=== PATIENT | female | born 1965 | race Caucasian/White ===

== ENCOUNTER 2023-08-10 12:39 | Observation (INO) | payer OTHER, SELFPAY ==
[~2023-08-10] VITALS: Ht 165.1 cm; Wt 79.6 kg
[2023-08-10] MEDS: MULTIVITAMINS/MINERALS THERAP 1 TAB PO SCH (09:00)
[~2023-08-10 12:39] MED LIST: FUROSEMIDE 40MG/4ML VIAL IV SCH
[2023-08-10] MEDS ORDERED: UNRESOLVED CLARIFICATION ENTRY XX STA (13:09)
[2023-08-10] MEDS: METOPROLOL 5 MG/5 ML VIAL IV SCH ×2 (13:14→15:13)
[2023-08-10] MEDS: METOPROLOL TART 50 MG TAB PO ONE ×2 (13:14→15:12)
[2023-08-10 13:25] LABS: BASO # 0.1 10^3/uL (0.0-0.2); BASO % 1.3 % (0.0-1.0); EOS # 0.1 10^3/uL (0.0-0.5); HEMATOCRIT 46.9 % (36.0-47.0); HEMOGLOBIN 15.8 g/dl (12.0-15.5); LYMPH # 1.7 10^3/uL (1.5-5.0); LYMPH % 26.3 % (24.0-44.0); MEAN CORPUSCULAR HEMOGLOBIN 36.2 pg (27.0-33.0); MEAN CORPUSCULAR HGB CONC 33.7 g/dl (32.0-36.5); MEAN CORPUSCULAR VOLUME 107.3 fl (80.0-96.0); MONO # 0.6 10^3/uL (0.0-0.8); MONO % 8.7 % (2.0-8.0); NEUTROPHILS # 3.9 10^3/uL (1.5-8.5); NEUTROPHILS % 62.5 % (36.0-66.0); PLATELET COUNT, AUTOMATED 288 10^3/uL (150-450); RED BLOOD COUNT 4.37 10^6/uL (4.00-5.40); WHITE BLOOD COUNT 6.3 10^3/uL (4.0-10.0)
[2023-08-10 13:57] LABS: FREE THYROXINE INDEX 3.2 % (1.3-4.8); T UPTAKE 39.4 % (22.5-37.0); THYROID STIMULATING HORMONE 2.52 uIU/ML (0.55-4.78)
[2023-08-10] MEDS ORDERED: MULTTAB61 PO (14:01)
[2023-08-10] MEDS ORDERED: CHEL50TA3 PO (14:01)
[2023-08-10] MEDS ORDERED: NAPR220C23 PO (14:01)
[2023-08-10] MEDS ORDERED: OMEG10002 PO (14:01)
[2023-08-10] MEDS ORDERED: D200CAP3 PO (14:01)
[2023-08-10] MEDS ORDERED: OMEP-173 PO (14:01)
[2023-08-10] MEDS ORDERED: DHEA50TA PO (14:01)
[2023-08-10] MEDS ORDERED: EPIN11.7 IH (14:01)
[2023-08-10] MEDS ORDERED: MAGN400C2 PO (14:01)
[2023-08-10] MEDS ORDERED: EQL50TAB2 PO (14:01)
[2023-08-10] MEDS ORDERED: ASPI81TA26 PO (14:01)
[2023-08-10] MEDS ORDERED: CALC600T57 PO (14:01)
[2023-08-10] MEDS ORDERED: HOME MED LIST COMPLETE! XX SCH (14:05)
[2023-08-10 14:07] LABS: ALBUMIN 3.7 G/DL (3.2-5.2); BILIRUBIN,DIRECT 0.4 MG/DL (<0.4); BILIRUBIN,TOTAL 1.1 MG/DL (0.3-1.2); CALCIUM LEVEL 9.5 MG/DL (8.5-10.1); CREATININE FOR GFR 1.09 MG/DL (0.55-1.30); GLOMERULAR FILTRATION RATE 54.9 (>51); MAGNESIUM LEVEL 2.1 MG/DL (1.8-2.4); POTASSIUM SERUM 4.2 MMOL/L (3.5-5.1); TOTAL PROTEIN 7.1 G/DL (5.7-8.2)
[2023-08-10] MEDS: DIGOXIN INJ 0.5 MG/2 ML AMP IV STA ×3 (16:51→21:11)
[2023-08-10] MEDS ORDERED: ACETAMINOPHEN TAB 650MG DOSE (2X325MG) PO PRN (18:40)
[2023-08-10] MEDS: MULTIVITAMINS/MINERALS THERAP 1 TAB PO ONE (18:40)
[2023-08-10] MEDS: FUROSEMIDE 40MG/4ML VIAL IV ONE (19:37)
[2023-08-10 19:57] LABS: C REACTIVE PROTEIN QUANTITATIV 0.7 MG/DL (<1.0)
[2023-08-10 19:58] LABS: CHOLESTEROL RISK RATIO 5.68 (<5); HDL CHOLESTEROL 31.5 MG/DL (>40); LDL CHOLESTEROL 130.9 MG/DL (<100); NON-HDL-C 147.5 MG/DL
[2023-08-10 20:04] LABS: INR 1.15; PROTHROMBIN TIME 14.4 SECONDS (12.5-14.5)
[2023-08-10 20:29] VITALS: BP 163/93
[2023-08-10 20:30] VITALS: TEMP 98.6; O2SAT 96
[2023-08-10] MEDS: ATORVASTATIN 20 MG TAB PO SCH (21:09)
[2023-08-10] MEDS: APIXABAN 5 MG TAB (ELIQUIS) PO SCH (21:10)
[2023-08-10] MEDS: atenoloL 50 MG TAB PO STA (21:10)
[2023-08-10 22:07] VITALS: BP 145/94
[2023-08-10 22:17] LABS: AMPHETAMINES LEVEL URINE NEGATIVE (NEGATIVE); BARBITURATES URINE NEGATIVE (NEGATIVE); BENZODIAZEPINES URINE NEGATIVE (NEGATIVE); CANNABINOIDS URINE NEGATIVE (NEGATIVE); COCAINE METABOLITE URINE NEGATIVE (NEGATIVE); METHADONE URINE NEGATIVE (NEGATIVE); OPIATES URINE NEGATIVE (NEGATIVE); PHENCYCLIDINE URINE NEGATIVE (NEGATIVE)
[2023-08-10] MEDS: DIGOXIN INJ 0.5 MG/2 ML AMP IV ONE (23:12)
[2023-08-10 23:51] VITALS: BP 158/71; TEMP 96.6; O2SAT 95
[2023-08-11] VITALS (9 sets, daily range): BP systolic 135–186; BP diastolic 79–98; TEMP 96.7–97.5; O2SAT 94–97
[2023-08-11] MEDS ORDERED: LORazepam 2 MG TAB PO PRN (08:25)
[2023-08-11 08:31] LABS: BASO # 0.1 10^3/uL (0.0-0.2); BASO % 1.2 % (0.0-1.0); EOS # 0.1 10^3/uL (0.0-0.5); EOS % 1.4 % (0.0-3.0); LYMPH # 1.1 10^3/uL (1.5-5.0); LYMPH % 21.6 % (24.0-44.0); MEAN CORPUSCULAR HEMOGLOBIN 36.3 pg (27.0-33.0); MEAN CORPUSCULAR HGB CONC 34.1 g/dl (32.0-36.5); MEAN CORPUSCULAR VOLUME 106.5 fl (80.0-96.0); MONO # 0.5 10^3/uL (0.0-0.8); MONO % 8.9 % (2.0-8.0); NEUTROPHILS # 3.4 10^3/uL (1.5-8.5); NEUTROPHILS % 66.7 % (36.0-66.0); PLATELET COUNT, AUTOMATED 236 10^3/uL (150-450); RED BLOOD COUNT 4.13 10^6/uL (4.00-5.40); WHITE BLOOD COUNT 5.1 10^3/uL (4.0-10.0)
[2023-08-11] MEDS ORDERED: atenoloL 50 MG TAB PO SCH (09:00)
[2023-08-11] MEDS: MULTIVITAMINS/MINERALS THERAP 1 TAB PO SCH (09:00)
[2023-08-11 09:04] LABS: ALKALINE PHOSPHATASE 83 U/L (46-116); ALT/SGPT 55 U/L (7.0-40); AST/SGOT 45 U/L (<34); BILIRUBIN,TOTAL 0.9 MG/DL (0.3-1.2); BLOOD UREA NITROGEN 20 MG/DL (9-23); CALCIUM LEVEL 8.9 MG/DL (8.5-10.1); CARBON DIOXIDE LEVEL 28 MMOL/L (20-31); CHLORIDE LEVEL 102 MMOL/L (98-107); CREATININE FOR GFR 0.95 MG/DL (0.55-1.30); GLOMERULAR FILTRATION RATE > 60.0 (>51); GLUCOSE, FASTING 99 MG/DL (60-100); MAGNESIUM LEVEL 1.9 MG/DL (1.8-2.4); POTASSIUM SERUM 4.2 MMOL/L (3.5-5.1); SODIUM LEVEL 137 MMOL/L (136-145)
[2023-08-11] MEDS: FUROSEMIDE 40MG/4ML VIAL IV SCH (09:08)
[2023-08-11] MEDS: VITAMIN B COMPLEX/VIT C CAP PO SCH (09:08)
[2023-08-11] MEDS: VITAMIN D 1,000 INTERNATIONAL UNITS TABLET PO SCH (09:08)
[2023-08-11] MEDS: DIGOXIN 0.25 MG TAB PO SCH (09:09)
[2023-08-11] MEDS: atenoloL 50 MG TAB PO SCH (09:09)
[2023-08-11] MEDS: THIAMINE 100 MG TAB PO SCH (09:09)
[2023-08-11] MEDS: SPIRONOLACTONE 12.5MG PER 1/2 TABLET PO SCH (09:10)
[2023-08-11] MEDS: FOLIC ACID 1MG TAB PO SCH (09:10)
[2023-08-11] MEDS: OMEGA-3 1000MG CAPSULE PO SCH (09:11)
[2023-08-11] MEDS: OMEPRAZOLE 20MG CAP PO SCH (09:11)
[2023-08-11] MEDS: ZINC SULFATE 220 MG CAP PO SCH (09:11)
[2023-08-11] MEDS: ASPIRIN 81MG ENTERIC TABLET PO SCH (09:11)
[2023-08-11] MEDS: CHLORTHALIDONE 12.5MG PER 1/2 TABLET PO SCH (09:18)
[2023-08-11] MEDS ORDERED: THIA100TA PO (11:05)
[2023-08-11] MEDS ORDERED: ATEN50TA2 PO (11:05)
[2023-08-11] MEDS ORDERED: FOLI1TAB11 PO (11:05)
[2023-08-11] MEDS ORDERED: ALDA25TA2 PO (11:05)
[2023-08-11] MEDS ORDERED: DIGO0.253 PO (11:05)
[2023-08-11] MEDS ORDERED: ATOR1TAB21 PO (11:05)
[2023-08-11] MEDS ORDERED: ELIQ5TAB PO (11:05)
[2023-08-11] MEDS ORDERED: LISI20TA33 PO (11:05)
[2023-08-11] MEDS ORDERED: CHLO125TA PO (11:05)
[2023-08-11] MEDS: METOPROLOL 5 MG/5 ML VIAL IV PRN (13:00)
[2023-08-11] MEDS: **hydrALAZINE** 10 MG TAB PO SCH (15:00)
[2023-08-12] VITALS (11 sets, daily range): BP systolic 119–175; BP diastolic 76–88; TEMP 97.1–97.8; O2SAT 92–96
[2023-08-12 06:10] LABS: BASO # 0.1 10^3/uL (0.0-0.2); BASO % 1.1 % (0.0-1.0); EOS # 0.1 10^3/uL (0.0-0.5); EOS % 1.6 % (0.0-3.0); HEMATOCRIT 47.2 % (36.0-47.0); HEMOGLOBIN 16.1 g/dl (12.0-15.5); LYMPH # 1.4 10^3/uL (1.5-5.0); LYMPH % 25.6 % (24.0-44.0); MEAN CORPUSCULAR HEMOGLOBIN 35.7 pg (27.0-33.0); MEAN CORPUSCULAR HGB CONC 34.1 g/dl (32.0-36.5); MEAN CORPUSCULAR VOLUME 104.7 fl (80.0-96.0); MONO # 0.6 10^3/uL (0.0-0.8); MONO % 10.2 % (2.0-8.0); NEUTROPHILS # 3.4 10^3/uL (1.5-8.5); NEUTROPHILS % 61.3 % (36.0-66.0); PLATELET COUNT, AUTOMATED 262 10^3/uL (150-450); RED BLOOD COUNT 4.51 10^6/uL (4.00-5.40); WHITE BLOOD COUNT 5.5 10^3/uL (4.0-10.0)
[2023-08-12 06:45] LABS: ALBUMIN 2.7 G/DL (3.2-5.2); ALKALINE PHOSPHATASE 80 U/L (46-116); ALT/SGPT 44 U/L (7.0-40); AST/SGOT 30 U/L (<34); BILIRUBIN,TOTAL 0.8 MG/DL (0.3-1.2); BLOOD UREA NITROGEN 16 MG/DL (9-23); CALCIUM LEVEL 8.8 MG/DL (8.5-10.1); CARBON DIOXIDE LEVEL 28 MMOL/L (20-31); CHLORIDE LEVEL 103 MMOL/L (98-107); CREATININE FOR GFR 0.79 MG/DL (0.55-1.30); GLOMERULAR FILTRATION RATE > 60.0 (>51); GLUCOSE, FASTING 84 MG/DL (60-100); MAGNESIUM LEVEL 1.8 MG/DL (1.8-2.4); POTASSIUM SERUM 4.2 MMOL/L (3.5-5.1); SODIUM LEVEL 140 MMOL/L (136-145); TOTAL PROTEIN 5.6 G/DL (5.7-8.2)
[2023-08-12] MEDS ORDERED: HYDR-161 PO (11:24)
[2023-08-12] MEDS: **hydrALAZINE** 50 MG TAB PO SCH (12:45)
[2023-08-12 14:57] LABS: DIGOXIN LEVEL 1.8 NG/ML (0.8-2.0)
[2023-08-12] MEDS: FLECAINIDE 50MG TABLET PO SCH (15:01)
[2023-08-12] MEDS: amLODIPine 5 MG TAB PO SCH (15:02)
[2023-08-13 03:53] VITALS: BP 140/80; TEMP 97.4; O2SAT 97
[2023-08-13 04:52] LABS: BASO # 0.1 10^3/uL (0.0-0.2); BASO % 0.9 % (0.0-1.0); EOS # 0.1 10^3/uL (0.0-0.5); EOS % 1.6 % (0.0-3.0); HEMATOCRIT 45.1 % (36.0-47.0); HEMOGLOBIN 15.7 g/dl (12.0-15.5); LYMPH # 1.6 10^3/uL (1.5-5.0); LYMPH % 25.4 % (24.0-44.0); MEAN CORPUSCULAR HEMOGLOBIN 36.7 pg (27.0-33.0); MEAN CORPUSCULAR HGB CONC 34.8 g/dl (32.0-36.5); MEAN CORPUSCULAR VOLUME 105.4 fl (80.0-96.0); MONO # 0.7 10^3/uL (0.0-0.8); MONO % 10.2 % (2.0-8.0); NEUTROPHILS % 61.7 % (36.0-66.0); PLATELET COUNT, AUTOMATED 277 10^3/uL (150-450); RED BLOOD COUNT 4.28 10^6/uL (4.00-5.40); WHITE BLOOD COUNT 6.4 10^3/uL (4.0-10.0)
[2023-08-13 05:17] LABS: ALBUMIN 2.8 G/DL (3.2-5.2); ALKALINE PHOSPHATASE 75 U/L (46-116); ALT/SGPT 38 U/L (7.0-40); AST/SGOT 23 U/L (<34); BILIRUBIN,TOTAL 0.6 MG/DL (0.3-1.2); BLOOD UREA NITROGEN 15 MG/DL (9-23); CALCIUM LEVEL 8.5 MG/DL (8.5-10.1); CARBON DIOXIDE LEVEL 30 MMOL/L (20-31); CHLORIDE LEVEL 101 MMOL/L (98-107); CREATININE FOR GFR 0.84 MG/DL (0.55-1.30); GLOMERULAR FILTRATION RATE > 60.0 (>51); GLUCOSE, FASTING 100 MG/DL (60-100); MAGNESIUM LEVEL 1.7 MG/DL (1.8-2.4); POTASSIUM SERUM 3.9 MMOL/L (3.5-5.1); SODIUM LEVEL 138 MMOL/L (136-145); TOTAL PROTEIN 5.7 G/DL (5.7-8.2)
[2023-08-13 08:05] VITALS: BP 144/84; TEMP 97.5; O2SAT 95
[2023-08-13 08:40] VITALS: BP 144/84
[2023-08-13] MEDS: FLECAINIDE 50MG TABLET PO SCH (08:41)
[2023-08-13] MEDS: MAG SULF 1GM/100ML (MAG RUN) 1 GM in IV 1 EA IV SCH (10:39)
[2023-08-13] MEDS ORDERED: AMLO1TAB24 PO (11:27)
[2023-08-13] MEDS ORDERED: FLEC25TA PO (11:27)
== END 2023-08-13 13:47 | disposition home or self-care (01) ==
LOC: M ED 12:39 → M ED INP 12:40 → M PCU 20:14
PROVIDERS: ADMIT Hospitalist; ATTEND Hospitalist
DX: I48.0 Paroxysmal atrial fibrillation (principal); E05.90 Thyrotoxicosis, unspecified without thyrotoxic crisis or storm; Z79.82 Long term (current) use of aspirin; Z79.899 Other long term (current) drug therapy; I10 Essential (primary) hypertension
CPT/HCPCS: 36415; 71045; 80048; 80053; 80061; 80076; 80162; 80307; 82077; 83036; 83605; 83735; 84145; 84436; 84443; 84479; 85025; 85610; 85730; 86140; 93005; 93041; 94760; 96374; 96375; 96376; 99285; J1160; J1940; J3475

== ENCOUNTER → 2023-08-21 | Outpatient (REF) | payer SELFPAY ==
[~2023-08-21] MED LIST changes: +ALDA25TA2 PO; +AMLO1TAB24 PO; +ASPI81TA26 PO; +ATEN50TA2 PO; +ATOR1TAB21 PO; +CALC600T57 PO; +CHEL50TA3 PO; +CHLO125TA PO; +D200CAP3 PO; +DHEA50TA PO; +DIGO0.253 PO; +ELIQ5TAB PO; +EPIN11.7 IH; +EQL50TAB2 PO; +FLEC25TA PO; +FOLI1TAB11 PO; -FUROSEMIDE 40MG/4ML VIAL IV SCH; +HYDR-161 PO; +LISI20TA33 PO; +MAGN400C2 PO; +MULTTAB61 PO; +NAPR220C23 PO; +OMEG10002 PO; +OMEP-173 PO; +THIA100TA PO
[2023-08-21 19:13] LABS: BASO # 0.1 10^3/uL (0.0-0.2); BASO % 1.6 % (0.0-1.0); EOS # 0.1 10^3/uL (0.0-0.5); EOS % 1.6 % (0.0-3.0); HEMOGLOBIN 16.6 g/dl (12.0-15.5); LYMPH # 1.4 10^3/uL (1.5-5.0); LYMPH % 24.7 % (24.0-44.0); MEAN CORPUSCULAR HEMOGLOBIN 35.5 pg (27.0-33.0); MEAN CORPUSCULAR HGB CONC 33.9 g/dl (32.0-36.5); MEAN CORPUSCULAR VOLUME 104.9 fl (80.0-96.0); MONO # 0.5 10^3/uL (0.0-0.8); MONO % 9.3 % (2.0-8.0); NEUTROPHILS # 3.5 10^3/uL (1.5-8.5); NEUTROPHILS % 62.6 % (36.0-66.0); PLATELET COUNT, AUTOMATED 366 10^3/uL (150-450); RED BLOOD COUNT 4.67 10^6/uL (4.00-5.40); WHITE BLOOD COUNT 5.6 10^3/uL (4.0-10.0)
[2023-08-21 19:19] LABS: C REACTIVE PROTEIN QUANTITATIV < 0.40 MG/DL (<1.0)
[2023-08-21 19:21] LABS: ALBUMIN 4.4 G/DL (3.2-5.2); ALKALINE PHOSPHATASE 100 U/L (46-116); ALT/SGPT 87 U/L (7.0-40); AST/SGOT 37 U/L (<34); BILIRUBIN,TOTAL 0.6 MG/DL (0.3-1.2); BLOOD UREA NITROGEN 20 MG/DL (9-23); CALCIUM LEVEL 9.5 MG/DL (8.5-10.1); CARBON DIOXIDE LEVEL 30 MMOL/L (20-31); CHLORIDE LEVEL 94 MMOL/L (98-107); CHOLESTEROL LEVEL 146 MG/DL (<200); CHOLESTEROL RISK RATIO 3.63 (<5); CREATININE FOR GFR 0.96 MG/DL (0.55-1.30); GLOMERULAR FILTRATION RATE > 60.0 (>51); GLUCOSE, FASTING 96 MG/DL (60-100); HDL CHOLESTEROL 40.2 MG/DL (>40); LDL CHOLESTEROL 71.4 MG/DL (<100); NON-HDL-C 105.8 MG/DL; POTASSIUM SERUM 5.5 MMOL/L (3.5-5.1); SODIUM LEVEL 130 MMOL/L (136-145); TOTAL PROTEIN 7.9 G/DL (5.7-8.2); TRIGLYCERIDES LEVEL 172 MG/DL (<150)
[2023-08-21 19:24] LABS: THYROID STIMULATING HORMONE 2.091 uIU/ML (0.55-4.78)
== END ==
LOC: M LAB REF 17:42
PROVIDERS: ATTEND Nurse Practitioner Family
DX: E06.9 Thyroiditis, unspecified (principal); E66.3 Overweight; R53.83 Other fatigue; M25.551 Pain in right hip; Z11.9 Encounter for screening for infectious and parasitic diseases, unspecified; M25.552 Pain in left hip

== ENCOUNTER → 2023-09-22 | Outpatient (CLI) | payer OTHER | LOC: M WHC 15:37 | PROVIDERS: ATTEND Nurse Practitioner Family | DX: Z12.31 Encounter for screening mammogram for malignant neoplasm of breast (principal) ==

== ENCOUNTER 2023-09-29 08:33 | Emergency (ER) | payer OTHER ==
[~2023-09-29] VITALS: Ht 165.1 cm; Wt 76.7 kg
[2023-09-29] MEDS: METOPROLOL 5 MG/5 ML VIAL IV SCH (09:28)
[2023-09-29 09:36] LABS: HEMATOCRIT 35.1 % (36.0-47.0); HEMOGLOBIN 11.9 g/dl (12.0-15.5); MEAN CORPUSCULAR HEMOGLOBIN 35.8 pg (27.0-33.0); MEAN CORPUSCULAR HGB CONC 33.9 g/dl (32.0-36.5); MEAN CORPUSCULAR VOLUME 105.7 fl (80.0-96.0); PLATELET COUNT, AUTOMATED 211 10^3/uL (150-450); RED BLOOD COUNT 3.32 10^6/uL (4.00-5.40); WHITE BLOOD COUNT 6.9 10^3/uL (4.0-10.0)
[2023-09-29 09:41] VITALS: BP 126/87
[2023-09-29 10:07] LABS: BLOOD UREA NITROGEN 12 MG/DL (9-23); CALCIUM LEVEL 8.9 MG/DL (8.5-10.1); CARBON DIOXIDE LEVEL 25 MMOL/L (20-31); CHLORIDE LEVEL 107 MMOL/L (98-107); CREATININE FOR GFR 0.92 MG/DL (0.55-1.30); GLOMERULAR FILTRATION RATE > 60.0 (>51); GLUCOSE, FASTING 116 MG/DL (60-100); POTASSIUM SERUM 4.1 MMOL/L (3.5-5.1); SODIUM LEVEL 139 MMOL/L (136-145)
[2023-09-29] MEDS: DIGOXIN INJ 0.5 MG/2 ML AMP IV STA ×2 (10:58→12:04)
[2023-09-29] MEDS: FLECAINIDE 50MG TABLET PO STA ×3 (13:48→17:02)
[2023-09-29] MEDS: WARFARIN SOD 5MG TAB PO ONE (13:48)
[2023-09-29 14:20] LABS: INR 1.08; PROTHROMBIN TIME 13.7 SECONDS (12.5-14.5)
[2023-09-29 17:30] VITALS: O2SAT 98
[2023-09-29 18:04] VITALS: BP 133/87; TEMP 98.2
[2023-09-29] MEDS ORDERED: DIGO0.253 PO (18:06)
[2023-09-29] MEDS ORDERED: FLEC25TA PO (18:06)
[2023-09-29] MEDS ORDERED: WARF-23 PO (18:08)
[2023-09-29] MEDS ORDERED: WARF-21 PO (18:10)
[2023-09-29] MEDS ORDERED: [UNRECOGNIZED DRUG - OTHER] (18:43)
== END 2023-09-29 18:53 | disposition home or self-care (01) ==
LOC: M ED 08:33
DX: Z76.0 Encounter for issue of repeat prescription (principal); I48.91 Unspecified atrial fibrillation; I10 Essential (primary) hypertension; E07.9 Disorder of thyroid, unspecified; Z79.82 Long term (current) use of aspirin; Z79.899 Other long term (current) drug therapy
CPT/HCPCS: 80048; 80162; 85027; 85610; 93005; 96374; 96376; 99285; J1160

== ENCOUNTER → 2023-10-02 | Outpatient (CLI) | payer OTHER ==
[~2023-10-02] MED LIST changes: +WARF-21 PO; +WARF-23 PO; +[UNRECOGNIZED DRUG - OTHER]
[2023-10-02 10:54] LABS: INR 2.75; PROTHROMBIN TIME 28.1 SECONDS (12.5-14.5)
== END ==
LOC: M LAB 09:25
PROVIDERS: ATTEND Emergency Medicine
DX: Z79.01 Long term (current) use of anticoagulants (principal)

== ENCOUNTER → 2023-10-09 | Outpatient (REF) | payer OTHER ==
[2023-10-09 13:06] LABS: INR 3.52
== END ==
LOC: M LAB REF 12:26
PROVIDERS: ATTEND Nurse Practitioner Family
DX: Z79.01 Long term (current) use of anticoagulants (principal)

== ENCOUNTER → 2023-10-21 | Outpatient (REF) | payer OTHER ==
[2023-10-21 12:52] LABS: INR 3.97; PROTHROMBIN TIME 37.3 SECONDS (12.5-14.5)
== END ==
LOC: M LAB REF 12:24
PROVIDERS: ATTEND Nurse Practitioner Family
DX: R79.1 Abnormal coagulation profile (principal)

== ENCOUNTER → 2023-10-30 | Outpatient (REF) | payer OTHER ==
[2023-10-30 16:28] LABS: INR 1.4; PROTHROMBIN TIME 16.8 SECONDS (12.5-14.5)
== END ==
LOC: M LAB REF 16:04
PROVIDERS: ATTEND Nurse Practitioner Family
DX: Z79.01 Long term (current) use of anticoagulants (principal)

== ENCOUNTER → 2023-11-06 | Outpatient (REF) | payer OTHER ==
[2023-11-06 11:46] LABS: INR 1.52; PROTHROMBIN TIME 17.8 SECONDS (12.5-14.5)
== END ==
LOC: M LAB REF 11:16
PROVIDERS: ATTEND Nurse Practitioner Family
DX: I48.91 Unspecified atrial fibrillation (principal)

== ENCOUNTER → 2023-11-13 | Outpatient (CLI) | payer OTHER ==
[2023-11-13 16:07] LABS: INR 1.95; PROTHROMBIN TIME 21.5 SECONDS (12.5-14.5)
[2023-11-13 16:29] LABS: BLOOD UREA NITROGEN 14 MG/DL (9-23); CARBON DIOXIDE LEVEL 33 MMOL/L (20-31); CHLORIDE LEVEL 96 MMOL/L (98-107); CREATININE FOR GFR 0.83 MG/DL (0.55-1.30); GLOMERULAR FILTRATION RATE > 60.0 (>51); GLUCOSE, FASTING 108 MG/DL (60-100); POTASSIUM SERUM 4.3 MMOL/L (3.5-5.1); SODIUM LEVEL 133 MMOL/L (136-145)
== END ==
LOC: M LAB 15:27
PROVIDERS: ATTEND Nurse Practitioner Family
DX: I10 Essential (primary) hypertension (principal); Z79.01 Long term (current) use of anticoagulants

== ENCOUNTER → 2023-12-04 | Outpatient (CLI) | payer OTHER ==
[2023-12-04 16:03] LABS: BASO % 0.9 % (0.0-1.0); EOS # 0.1 10^3/uL (0.0-0.5); EOS % 1.5 % (0.0-3.0); HEMATOCRIT 35.1 % (36.0-47.0); HEMOGLOBIN 11.9 g/dl (12.0-15.5); LYMPH # 1.4 10^3/uL (1.5-5.0); LYMPH % 40.2 % (24.0-44.0); MEAN CORPUSCULAR HEMOGLOBIN 35.8 pg (27.0-33.0); MEAN CORPUSCULAR HGB CONC 33.9 g/dl (32.0-36.5); MEAN CORPUSCULAR VOLUME 105.7 fl (80.0-96.0); MONO # 0.4 10^3/uL (0.0-0.8); MONO % 12.3 % (2.0-8.0); NEUTROPHILS # 1.5 10^3/uL (1.5-8.5); NEUTROPHILS % 45.1 % (36.0-66.0); PLATELET COUNT, AUTOMATED 225 10^3/uL (150-450); RED BLOOD COUNT 3.32 10^6/uL (4.00-5.40); WHITE BLOOD COUNT 3.4 10^3/uL (4.0-10.0)
[2023-12-04 16:24] LABS: HEMOGLOBIN A1c 4.9 % (4.0-6.0)
[2023-12-04 16:30] LABS: ALBUMIN 3.8 G/DL (3.2-5.2); ALKALINE PHOSPHATASE 76 U/L (46-116); ALT/SGPT 30 U/L (7.0-40); AST/SGOT 15 U/L (<34); BILIRUBIN,TOTAL 0.8 MG/DL (0.3-1.2); BLOOD UREA NITROGEN 20 MG/DL (9-23); CARBON DIOXIDE LEVEL 30 MMOL/L (20-31); CHLORIDE LEVEL 99 MMOL/L (98-107); CHOLESTEROL LEVEL 145 MG/DL (<200); CHOLESTEROL RISK RATIO 3.86 (<5); CREATININE FOR GFR 0.91 MG/DL (0.55-1.30); GLOMERULAR FILTRATION RATE > 60.0 (>51); GLUCOSE, FASTING 100 MG/DL (60-100); HDL CHOLESTEROL 37.5 MG/DL (>40); LDL CHOLESTEROL 75.9 MG/DL (<100); NON-HDL-C 107.5 MG/DL; POTASSIUM SERUM 3.9 MMOL/L (3.5-5.1); SODIUM LEVEL 132 MMOL/L (136-145); TOTAL PROTEIN 6.8 G/DL (5.7-8.2); TRIGLYCERIDES LEVEL 158 MG/DL (<150)
[2023-12-04 16:32] LABS: THYROID STIMULATING HORMONE 1.173 uIU/ML (0.55-4.78)
== END ==
LOC: M LAB 15:12
PROVIDERS: ATTEND Internal Medicine Cardiovascular Disease
DX: I48.11 Longstanding persistent atrial fibrillation (principal); I11.0 Hypertensive heart disease with heart failure; I42.6 Alcoholic cardiomyopathy; Z13.1 Encounter for screening for diabetes mellitus; E78.2 Mixed hyperlipidemia; I50.9 Heart failure, unspecified

== ENCOUNTER → 2024-04-17 | Outpatient (CLI) | payer OTHER ==
[2024-04-17 12:25] LABS: INR 2.81; PROTHROMBIN TIME 29.6 SECONDS (12.5-14.5)
[2024-04-17 12:26] LABS: BLOOD UREA NITROGEN 22 MG/DL (9-23); CALCIUM LEVEL 8.6 MG/DL (8.5-10.1); CARBON DIOXIDE LEVEL 29 MMOL/L (20-31); CHLORIDE LEVEL 101 MMOL/L (98-107); CREATININE FOR GFR 0.82 MG/DL (0.55-1.30); GLOMERULAR FILTRATION RATE > 60.0 (>51); GLUCOSE, FASTING 95 MG/DL (60-100); POTASSIUM SERUM 5.1 MMOL/L (3.5-5.1); SODIUM LEVEL 140 MMOL/L (136-145)
== END ==
LOC: M LAB 10:19
PROVIDERS: ATTEND Nurse Practitioner Family
DX: I48.91 Unspecified atrial fibrillation (principal)

== ENCOUNTER → 2024-04-23 | Outpatient (CLI) | payer OTHER ==
[2024-04-23 15:14] LABS: PROTHROMBIN TIME 55.3 SECONDS (12.5-14.5)
[2024-04-23 15:28] LABS: INR 6.43
== END ==
LOC: M LAB 14:19
PROVIDERS: ATTEND Nurse Practitioner Family
DX: I48.91 Unspecified atrial fibrillation (principal); Z79.01 Long term (current) use of anticoagulants

== ENCOUNTER → 2024-04-26 | Outpatient (CLI) | payer OTHER ==
[2024-04-26 15:54] LABS: INR 3.95; PROTHROMBIN TIME 38.2 SECONDS (12.5-14.5)
== END ==
LOC: M LAB 15:17
PROVIDERS: ATTEND Nurse Practitioner Family
DX: R79.1 Abnormal coagulation profile (principal)

== ENCOUNTER → 2024-05-04 | Outpatient (CLI) | payer OTHER ==
[2024-05-04 10:37] LABS: INR 1.61; PROTHROMBIN TIME 19.4 SECONDS (12.5-14.5)
== END ==
LOC: M LAB 08:55
PROVIDERS: ATTEND Nurse Practitioner Family
DX: R79.1 Abnormal coagulation profile (principal)

== ENCOUNTER → 2024-05-14 | Outpatient (REF) | payer OTHER ==
[~2024-05-14] MED LIST changes: +ACET-910 PO; +BUME0.5T2; +CARV25TA; +FLON1SPR NARES; +LOSA100T46; +PRED20TA PO; +ROSU20TA86; +SOTA80TA32
[2024-05-14 17:33] LABS: INR 3.56; PROTHROMBIN TIME 35.3 SECONDS (12.5-14.5)
== END ==
LOC: M LAB REF 17:01
PROVIDERS: ATTEND Nurse Practitioner Family
DX: R79.1 Abnormal coagulation profile (principal)

== ENCOUNTER 2024-05-17 09:23 | Emergency (ER) | payer OTHER ==
[~2024-05-17] VITALS: Ht 162.6 cm; Wt 74.8 kg
[~2024-05-17 09:23] MED LIST changes: -ACET-910 PO; -BUME0.5T2; -CARV25TA; -FLON1SPR NARES; -LOSA100T46; -PRED20TA PO; -ROSU20TA86; -SOTA80TA32
[2024-05-17] MEDS ORDERED: LOSA100T46 (11:54)
[2024-05-17] MEDS ORDERED: SOTA80TA32 (11:54)
[2024-05-17] MEDS ORDERED: ROSU20TA86 (11:54)
[2024-05-17] MEDS ORDERED: BUME0.5T2 (11:54)
[2024-05-17] MEDS ORDERED: CARV25TA (11:54)
[2024-05-17] MEDS ORDERED: FLON1SPR NARES (11:54)
[2024-05-17] MEDS ORDERED: ACET-910 PO (11:54)
[2024-05-17 11:55] LABS: BASO % 0.6 % (0.0-1.0); EOS # 0.1 10^3/uL (0.0-0.5); EOS % 1.3 % (0.0-3.0); HEMATOCRIT 32.6 % (36.0-47.0); HEMOGLOBIN 10.7 g/dl (12.0-15.5); LYMPH # 1.3 10^3/uL (1.5-5.0); LYMPH % 20.7 % (24.0-44.0); MEAN CORPUSCULAR HEMOGLOBIN 34.5 pg (27.0-33.0); MEAN CORPUSCULAR HGB CONC 32.8 g/dl (32.0-36.5); MEAN CORPUSCULAR VOLUME 105.2 fl (80.0-96.0); MONO # 0.5 10^3/uL (0.0-0.8); MONO % 8.4 % (2.0-8.0); NEUTROPHILS # 4.2 10^3/uL (1.5-8.5); NEUTROPHILS % 68.7 % (36.0-66.0); PLATELET COUNT, AUTOMATED 229 10^3/uL (150-450); WHITE BLOOD COUNT 6.2 10^3/uL (4.0-10.0)
[2024-05-17 12:05] LABS: INR 4.69; PROTHROMBIN TIME 43.5 SECONDS (12.5-14.5)
[2024-05-17] MEDS: ACETAMINOPHEN 325 MG TAB PO ONE (12:16)
[2024-05-17 12:47] VITALS: BP 160/76; TEMP 97.6; O2SAT 98
[2024-05-17] MEDS ORDERED: PRED20TA PO (12:47)
== END 2024-05-17 13:02 | disposition home or self-care (01) ==
LOC: M ED 09:23
DX: M25.462 Effusion, left knee (principal); R79.1 Abnormal coagulation profile; M17.12 Unilateral primary osteoarthritis, left knee; Z79.1 Long term (current) use of non-steroidal anti-inflammatories (NSAID); Z79.52 Long term (current) use of systemic steroids; Z79.899 Other long term (current) drug therapy

== ENCOUNTER → 2024-05-20 | Outpatient (REF) | payer OTHER ==
[~2024-05-20] MED LIST changes: +ACET-910 PO; +BUME0.5T2; +CARV25TA; +FLON1SPR NARES; +LOSA100T46; +PRED20TA PO; +ROSU20TA86; +SOTA80TA32
[2024-05-20 12:48] LABS: INR 2.36; PROTHROMBIN TIME 25.9 SECONDS (12.5-14.5)
== END ==
LOC: M LAB REF 12:21
PROVIDERS: ATTEND Nurse Practitioner Family
DX: R79.1 Abnormal coagulation profile (principal)

== ENCOUNTER → 2024-06-08 | Outpatient (CLI) | payer OTHER ==
[2024-06-08 11:02] LABS: INR 1.83; PROTHROMBIN TIME 21.3 SECONDS (12.5-14.5)
== END ==
LOC: M LAB 10:29
PROVIDERS: ATTEND Nurse Practitioner Family
DX: R79.1 Abnormal coagulation profile (principal)

== ENCOUNTER 2024-06-16 08:49 | Emergency (ER) | payer OTHER ==
[~2024-06-16] VITALS: Ht 162.6 cm; Wt 74.8 kg
[2024-06-16] MEDS ORDERED: WARF-58 (09:14)
[2024-06-16] MEDS ORDERED: HYDR-3713 PO (11:54)
[2024-06-16 12:03] VITALS: BP 152/84; TEMP 98; O2SAT 99
== END 2024-06-16 12:00 | disposition home or self-care (01) ==
LOC: M ED 08:49
DX: M23.92 Unspecified internal derangement of left knee (principal); M25.462 Effusion, left knee; X50.0XXA Overexertion from strenuous movement or load, initial encounter; Z79.52 Long term (current) use of systemic steroids; Z79.1 Long term (current) use of non-steroidal anti-inflammatories (NSAID); Z79.899 Other long term (current) drug therapy; Z79.01 Long term (current) use of anticoagulants; Y99.9 Unspecified external cause status

== ENCOUNTER → 2024-06-23 | Outpatient (REF) | payer OTHER ==
[~2024-06-23] MED LIST changes: +HYDR-3713 PO; +WARF-58
[2024-06-23 16:56] LABS: INR 2.07; PROTHROMBIN TIME 23.4 SECONDS (12.5-14.5)
== END ==
LOC: M LAB REF 16:32
PROVIDERS: ATTEND Nurse Practitioner Family
DX: R79.1 Abnormal coagulation profile (principal)

== ENCOUNTER → 2024-06-24 | Outpatient (CLI) | payer OTHER | LOC: M PLARAD 14:46 | PROVIDERS: ATTEND Orthopaedic Surgery | DX: M25.562 Pain in left knee (principal) ==

== ENCOUNTER → 2024-07-12 | Outpatient (CLI) | payer OTHER ==
[2024-07-12 11:08] LABS: INR 2.8; PROTHROMBIN TIME 29.5 SECONDS (12.5-14.5)
== END ==
LOC: M LAB 10:06
PROVIDERS: ATTEND Nurse Practitioner Family
DX: I48.91 Unspecified atrial fibrillation (principal)

== ENCOUNTER 2024-07-25 20:20 | Emergency (ER) | payer OTHER ==
[2024-07-25] MEDS ORDERED: IPRATROPIUM 0.5MG/ALBUTEROL 2.5MG INH SOL UD 3ML As Ordered ONE (20:32)
[2024-07-25] MEDS: IPRATROPIUM 0.5MG/ALBUTEROL 2.5MG INH SOL UD 3ML NEB ONE ×2 (20:39)
[2024-07-25 20:44] LABS: VENOUS BASE EXCESS -1.9 (-2.0-2.0); VENOUS HCO3 24.2 MMOL/L (23.0-27.0); VENOUS O2 SATURATION 94.1 % (60.0-80.0); VENOUS PARTIAL PRESSURE CO2 46.7 mmHg (38.0-50.0); VENOUS PARTIAL PRESSURE O2 75.3 mmHg (30.0-50.0); VENOUS PH 7.333 UNITS (7.330-7.430); VENOUS STANDARD HCO3 22.8 MMOL/L; VENOUS TOTAL CO2 25.7 MMOL/L (24.0-28.0)
[2024-07-25 20:50] LABS: BASO # 0.1 10^3/uL (0.0-0.2); EOS # 0.2 10^3/uL (0.0-0.5); EOS % 2.4 % (0.0-3.0); HEMATOCRIT 39.4 % (36.0-47.0); HEMOGLOBIN 13.1 g/dl (12.0-15.5); LYMPH # 1.8 10^3/uL (1.5-5.0); MEAN CORPUSCULAR HGB CONC 33.2 g/dl (32.0-36.5); MEAN CORPUSCULAR VOLUME 108.2 fl (80.0-96.0); MONO # 0.6 10^3/uL (0.0-0.8); NEUTROPHILS # 5.2 10^3/uL (1.5-8.5); NEUTROPHILS % 66.3 % (36.0-66.0); PLATELET COUNT, AUTOMATED 245 10^3/uL (150-450); RED BLOOD COUNT 3.64 10^6/uL (4.00-5.40); WHITE BLOOD COUNT 7.9 10^3/uL (4.0-10.0)
[2024-07-25] MEDS: methylPREDNISolone 125MG 2ML VIAL IV ONE (20:55)
[2024-07-25 21:18] LABS: CK-MB VALUE MASS < 1.0 NG/ML (<3.6)
[2024-07-25 21:19] LABS: THYROID STIMULATING HORMONE 2.989 uIU/ML (0.55-4.78); THYROXINE (T4) 5.9 UG/DL (4.5-10.9)
[2024-07-25 21:26] LABS: ALBUMIN 4.1 G/DL (3.2-5.2); ALKALINE PHOSPHATASE 99 U/L (35-104); ALT/SGPT 37 U/L (7.0-40); AST/SGOT 30 U/L (<34); BILIRUBIN,DIRECT 0.1 MG/DL (<0.4); BILIRUBIN,TOTAL 0.4 MG/DL (0.3-1.2); BLOOD UREA NITROGEN 18 MG/DL (9-23); CALCIUM LEVEL 8.6 MG/DL (8.5-10.1); CARBON DIOXIDE LEVEL 24 MMOL/L (20-31); CHLORIDE LEVEL 104 MMOL/L (98-107); CPK CREATINE PHOSPHOKINASE 62 U/L (34-145); CREATININE FOR GFR 0.69 MG/DL (0.55-1.30); GLOMERULAR FILTRATION RATE > 90.0 (>51); GLUCOSE, FASTING 129 MG/DL (60-100); MB/CK RELATIVE INDEX 1.61 (< OR =4); POTASSIUM SERUM 3.9 MMOL/L (3.5-5.1); SODIUM LEVEL 140 MMOL/L (136-145); TOTAL PROTEIN 7.5 G/DL (5.7-8.2)
[2024-07-25 22:10] VITALS: O2SAT 96
[2024-07-25] MEDS ORDERED: PRED20TA PO (22:19)
[2024-07-25] MEDS ORDERED: VENTAER INH (22:19)
[2024-07-25 22:20] VITALS: BP 169/77; TEMP 98.4; O2SAT 97
== END 2024-07-25 22:30 | disposition home or self-care (01) ==
LOC: M ED 20:20
DX: J45.901 Unspecified asthma with (acute) exacerbation (principal); I10 Essential (primary) hypertension; F10.10 Alcohol abuse, uncomplicated; Z86.79 Personal history of other diseases of the circulatory system; Z79.52 Long term (current) use of systemic steroids; Z79.899 Other long term (current) drug therapy; Z79.01 Long term (current) use of anticoagulants
CPT/HCPCS: 71045; 80048; 80076; 82550; 82553; 82803; 83605; 83880; 84436; 84443; 84484; 85025; 87486; 87581; 87633; 87798; 93005; 93041; 94640; 94760; 96374; 99285; J2919

== ENCOUNTER → 2024-07-26 | Outpatient (REF) | payer OTHER ==
[~2024-07-26] MED LIST changes: +VENTAER INH
[2024-07-26 12:33] LABS: INR 4.32; PROTHROMBIN TIME 40.9 SECONDS (12.5-14.5)
== END ==
LOC: M LAB REF 12:07
PROVIDERS: ATTEND Nurse Practitioner Family
DX: I48.91 Unspecified atrial fibrillation (principal)

== ENCOUNTER → 2024-09-11 | Outpatient (CLI) | payer OTHER ==
[~2024-09-11] MED LIST changes: -EQL50TAB2 PO; +VITA1TAB82 PO
== END ==
LOC: M RAD 08:57
PROVIDERS: ATTEND Orthopaedic Surgery
DX: M25.662 Stiffness of left knee, not elsewhere classified (principal)

== ENCOUNTER → 2024-09-14 | Outpatient (REF) | payer OTHER ==
[2024-09-14 17:27] LABS: INR 2.08
[2024-09-14 19:52] LABS: VITAMIN B12 LEVEL 581 PG/ML (211-911)
== END ==
LOC: M LAB REF 16:54
PROVIDERS: ATTEND Nurse Practitioner Family
DX: R79.1 Abnormal coagulation profile (principal)

== ENCOUNTER → 2024-10-07 | Outpatient (REF) | payer OTHER ==
[2024-10-07 14:50] LABS: INR 1.96
== END ==
LOC: M LAB REF 14:23
PROVIDERS: ATTEND Nurse Practitioner Family
DX: R79.1 Abnormal coagulation profile (principal)

== ENCOUNTER → 2024-10-07 | Outpatient (RCR) | payer OTHER | LOC: M PT 09-08 08:25 | PROVIDERS: ATTEND Orthopaedic Surgery | DX: S80.02XA Contusion of left knee, initial encounter (principal) ==

== ENCOUNTER 2024-10-11 10:35 | Outpatient (RCR) | payer OTHER | END 2024-11-07 | LOC: M PT 10:35 | PROVIDERS: ATTEND Orthopaedic Surgery | DX: S80.02XA Contusion of left knee, initial encounter (principal); X58.XXXA Exposure to other specified factors, initial encounter; Y92.9 Unspecified place or not applicable ==

== ENCOUNTER → 2024-10-20 | Outpatient (REF) | payer OTHER ==
[2024-10-20 14:31] LABS: INR 3.2
== END ==
LOC: M LAB REF 14:05
PROVIDERS: ATTEND Nurse Practitioner Family
DX: R79.1 Abnormal coagulation profile (principal)

== ENCOUNTER → 2024-12-01 | Outpatient (REF) | payer OTHER ==
[2024-12-01 14:22] LABS: INR 3.6
== END ==
LOC: M LAB REF 13:53
PROVIDERS: ATTEND Nurse Practitioner Family
DX: I48.19 Other persistent atrial fibrillation (principal)

== ENCOUNTER → 2024-12-09 | Outpatient (REF) | payer OTHER ==
[2024-12-09 13:54] LABS: INR 1.72
[2024-12-09 13:55] LABS: ALT/SGPT 33.0 U/L (7.0-40); AST/SGOT 38.0 U/L (<34); CHOLESTEROL LEVEL 182.0 MG/DL (<200); CHOLESTEROL RISK RATIO 2.98 (<5); LDL CHOLESTEROL 92.4 MG/DL (<100); NON-HDL-C 121.0 MG/DL; TRIGLYCERIDES LEVEL 143.0 MG/DL (<150)
== END ==
LOC: M LAB REF 13:37
PROVIDERS: ATTEND Nurse Practitioner Family
DX: I48.91 Unspecified atrial fibrillation (principal); E78.5 Hyperlipidemia, unspecified; F10.29 Alcohol dependence with unspecified alcohol-induced disorder

== ENCOUNTER → 2024-12-16 | Outpatient (CLI) | payer OTHER | LOC: M SOG 07:24 | PROVIDERS: ATTEND Orthopaedic Surgery | DX: M25.662 Stiffness of left knee, not elsewhere classified (principal); M25.562 Pain in left knee; M17.12 Unilateral primary osteoarthritis, left knee ==

== ENCOUNTER → 2024-12-24 | Outpatient (REF) | payer OTHER ==
[2024-12-24 12:30] LABS: INR 2.71
== END ==
LOC: M LAB REF 11:54
PROVIDERS: ATTEND Nurse Practitioner Family
DX: R79.1 Abnormal coagulation profile (principal)

== ENCOUNTER → 2025-01-05 | Outpatient (REF) | payer OTHER ==
[2025-01-05 17:06] LABS: INR 1.78
== END ==
LOC: M LAB REF 16:22
PROVIDERS: ATTEND Nurse Practitioner Family
DX: I48.91 Unspecified atrial fibrillation (principal)

== ENCOUNTER → 2025-01-18 | Outpatient (REF) | payer OTHER ==
[2025-01-18 12:04] LABS: INR 3.19
== END ==
LOC: M LAB REF 11:39
PROVIDERS: ATTEND Nurse Practitioner Family
DX: Z79.01 Long term (current) use of anticoagulants (principal)

== ENCOUNTER → 2025-02-01 | Outpatient (REF) | payer OTHER ==
[2025-02-01 12:21] LABS: INR 2.43
== END ==
LOC: M LAB REF 11:42
PROVIDERS: ATTEND Nurse Practitioner Family
DX: Z79.01 Long term (current) use of anticoagulants (principal)

== ENCOUNTER → 2025-02-15 | Outpatient (REF) | payer OTHER ==
[2025-02-15 14:28] LABS: INR 1.98
== END ==
LOC: M LAB REF 13:45
PROVIDERS: ATTEND Nurse Practitioner Family
DX: Z79.01 Long term (current) use of anticoagulants (principal)